=== PATIENT | male | born 1985 | race Caucasian/White ===

== ENCOUNTER → 2017-10-25 16:10 | Outpatient (CLI) | payer OTHER, SELFPAY ==
[2017-10-25 16:47] LABS: Alanine Aminotransferase 37 U/L (12-78); Albumin Level 4.3 gm/dL (3.4-5.0); Albumin/Globulin Ratio 1.4 (1.1-1.8); Alkaline Phosphatase 85 U/L (46-116); Aspartate Amino Transferase 19 U/L (15-37); Bilirubin,Total 0.3 mg/dL (0.2-1.0); Blood Urea Nitrogen 12 mg/dL (7-18); Calcium 9.2 mg/dL (8.5-10.1); Carbon Dioxide 34 mmol/L (21.0-32.0); Chloride 103 mmol/L (98-107); Creatine Kinase 123 U/L (39-308); Creatine Kinase MB 1.2 ng/ml (0.0-3.6); Creatinine,Serum 1.01 mg/dL (0.70-1.30); Estimated Glomerular Filt Rate 85 ml/min (>60); GFR (African American) 102 ML/MIN (>60); Globulin 3.1 gm/dl (1.3-3.2); Glucose 107 mg/dL (74-106); Sodium 139 mmol/L (136-145); Total Protein,Serum 7.4 gm/dL (6.4-8.2); Troponin I < 0.02 ng/ml (0.00-0.06)
--- NOTE | 2017-10-25 16:47 | CT_ITS ---
CT angio chest HISTORY: ITS.REASON: CHEST PAIN ORDERING PHYSICIAN: Rl Gallo MD PATIENT AGE: 32 years COMPARISON: None TECHNIQUE: Axial images obtained following the administration of 75 mL of Isovue 370 . Sagittal, and coronal reformatted images are also generated and reviewed. All CT scans at the facility use one or more dose reduction, viz: automated exposure control; ma/kV adjustment per patient size (including targeted exams where dose is matched to indication; i.e. head); or iterative reconstruction technique. FINDINGS: There is no evidence of aortic aneurysm or dissection. No evidence of pulmonary embolus. No mediastinal or hilar mass or adenopathy. No evidence of pericardial effusion. No lobar consolidation or collapse. There is a small area of increased density in the right lower lobe superior segment anterior to a calcified granuloma and could be related to an area of scarring or minimal infiltrate. 1Calcified granulomas are present in the right lower lobe.. No effusions. No evidence of pneumothorax. There are scattered small nodes in the axilla. No acute bony anomalies are evident. Upper abdominal images are unremarkable. IMPRESSION: 1. No evidence of pulmonary embolus, aortic aneurysm, or aortic dissection. 2. Old granulomatous disease with small area of fibrosis atelectasis or patchy infiltrate in the superior segment of the right lower lobe
[2017-10-25 16:53] LABS: Basophils # 0.1 K/mm3 (0-0.2); Basophils % 0.8 % (0.1-2.0); Eosinophils # 0.3 K/mm3 (0.0-0.4); Eosinophils % 3.8 % (0.1-12.0); Hematocrit 39.5 % (42.0-52.0); Hemoglobin 14.3 g/dL (14.1-18.0); Lymphocytes % 28.3 K/mm3 (10-50); Mean Corpuscular HGB Conc 36.2 g/dL (31.8-35.4); Mean Corpuscular Hemoglobin 32.1 pg (27.0-31.2); Mean Corpuscular Volume 88.6 fl (80-94); Mean Platelet Volume 7.7 fl (7.4-10.4); Monocytes # 0.6 K/mm3 (0.1-1.0); Monocytes % 8.1 % (1.7-9.3); Neutrophils # 4.1 K/mm3 (1.8-7.8); Platelet Count 229 K/mm3 (142-424); Red Blood Count 4.46 M/mm3 (4.60-6.20); Red Cell Distribution Width 12.4 % (11.5-17.5); White Blood Count 6.9 K/mm3 (4.8-10.8)
[2017-10-25 17:18] LABS: D-Dimer < 100 ng/mL (0-400)
== END ==
LOC: LAB 16:12 → RAD 16:24
PROVIDERS: Visit Provider Internal Medicine Adolescent Medicine
DX: R07.9 Chest pain, unspecified (principal); R06.02 Shortness of breath
CPT/HCPCS: 36415; 71275; 80053; 82550; 82553; 84484; 85025; 85378; Q9967

== ENCOUNTER → 2018-07-16 14:25 | Outpatient (CLI) | payer OTHER, SELFPAY ==
--- NOTE | 2018-07-16 14:37 | XR_ITS ---
XR knee LT 3V HISTORY: Pain and swelling ITS.REASON: LT KNEE PAIN ORDERING PHYSICIAN: Rl Gallo MD PATIENT AGE: 33 years COMPARISON: None FINDINGS: No fracture or dislocation. No lytic or blastic change. Normal mineralization. No significant arthritic changes evident. There is mild soft tissue swelling along the prepatellar and infrapatellar region. Possibly related to bursitis. IMPRESSION: Prepatellar and infrapatellar soft tissue swelling otherwise negative
== END ==
PROVIDERS: PCP Internal Medicine Adolescent Medicine; Visit Provider Internal Medicine Adolescent Medicine
DX: M25.562 Pain in left knee (principal)
CPT/HCPCS: 73562

== ENCOUNTER → 2019-11-07 19:24 | Outpatient (CLI) | payer OTHER, SELFPAY ==
[2019-11-09 08:31] LABS: Covid-19 Nasal PCR Sendout UK NOT DETECTED
== END ==
PROVIDERS: PCP Internal Medicine Adolescent Medicine; Visit Provider Internal Medicine Adolescent Medicine
DX: Z20.828 Contact with and (suspected) exposure to other viral communicable diseases (principal)
CPT/HCPCS: U0003

== ENCOUNTER → 2021-01-16 10:10 | Outpatient (CLI) | payer SELFPAY | PROVIDERS: PCP Internal Medicine Adolescent Medicine; Visit Provider Internal Medicine Adolescent Medicine | DX: R55 Syncope and collapse (principal) | CPT/HCPCS: 93270 ==

== ENCOUNTER → 2022-12-13 15:11 | Outpatient (CLI) | payer BC, SELFPAY ==
--- NOTE | 2022-12-13 15:17 | XR_ITS ---
FINAL REPORT CLINICAL HISTORY: RT ELBOW PAIN,H/O GOUT, knot on posterior elbow, no injury COMPARISON: None FINDINGS: Three views of the right elbow were obtained. There is no acute fracture or dislocation. The joint spaces are well preserved. No evidence of effusion. There is soft tissue swelling posterior to the olecranon. There is an osteophyte arising from the coronoid process. IMPRESSION: No acute process. Reviewed, Interpreted and Dictated by Festus Ralph MD Transcribed by Nicky Corbin Authenticated and [facility]
== END ==
LOC: RAD 15:12
PROVIDERS: PCP Nurse Practitioner Family; Visit Provider Nurse Practitioner Family
DX: M25.521 Pain in right elbow (principal); Z87.39 Personal history of other diseases of the musculoskeletal system and connective tissue
CPT/HCPCS: 73080

== ENCOUNTER 2022-12-16 20:55 | Emergency (ER) | payer BC, SELFPAY ==
--- NOTE | 2022-12-16 21:06 | PC.NURSE ---
Dr. Cardenas at BS to speak with pt
[2022-12-16 21:07] VITALS: BP 125/82; PULSE 76; RESP 19; TEMP 36.7; O2SAT 98; BMI 29.0
--- NOTE | 2022-12-16 21:12 | PC.NURSE ---
Pt gone to RAD via stretcher. Dr. Cardenas and FARIBA [place] with pt in CT.
--- NOTE | 2022-12-16 21:12 | CT_ITS ---
PROCEDURE INFORMATION: Exam: CT Thoracic Spine Without Contrast Exam date and time: 12/16/2022 9:33 PM Age: 37 years old Clinical indication: Weakness; Additional info: Ble weakness, proximal hips TECHNIQUE: Imaging protocol: Computed tomography of the thoracic spine without contrast. Radiation optimization: All CT scans at this facility use at least one of these dose optimization techniques: automated exposure control; mA and/or kV adjustment per patient size (includes targeted exams where dose is matched to clinical indication); or iterative reconstruction. REPORTING DATA: Count of CT and Cardiac NM exams in prior 12 months: This patient has received 0 known CTs and 0 known cardiac nuclear medicine studies in the 12 months prior to the current study. COMPARISON: CT CERVICAL SPINE WO CON 12/16/2022 9:30 PM FINDINGS: Bones/joints: No acute fracture or dislocation is identified. Soft tissues: Unremarkable. Lymph nodes: There are calcified mediastinal lymph nodes likely reflecting prior granulomatous disease. Lungs: There are calcified granulomas in the right lung. Other findings: . IMPRESSION: No acute osseous injury. If concern for thoracic spinal canal abnormality exists, MRI would be more sensitive.
--- NOTE | 2022-12-16 21:12 | CT_ITS ---
PROCEDURE INFORMATION: Exam: CTA Head With Contrast, Arteriography Exam date and time: 12/16/2022 9:54 PM Age: 37 years old Clinical indication: Weakness; Additional info: Weakness, ble TECHNIQUE: Imaging protocol: Computed tomographic angiography of the head with contrast. Exam focused on the arteries. 3D rendering (Not supervised by radiologist): MIP and/or 3D reconstructed images were created by the technologist. Radiation optimization: All CT scans at this facility use at least one of these dose optimization techniques: automated exposure control; mA and/or kV adjustment per patient size (includes targeted exams where dose is matched to clinical indication); or iterative reconstruction. Contrast material: ISOVUE; Contrast volume: 75 ml; Contrast route: INTRAVENOUS (IV); REPORTING DATA: Count of CT and Cardiac NM exams in prior 12 months: This patient has received 0 known CTs and 0 known cardiac nuclear medicine studies in the 12 months prior to the current study. COMPARISON: CT HEAD/BRAIN WO CON 12/16/2022 9:24 PM FINDINGS: ANTERIOR CIRCULATION: Right internal carotid artery: Intracranial segment is patent with no significant stenosis. No aneurysm. Right middle cerebral artery: No occlusion or significant stenosis. No aneurysm. Right anterior cerebral artery: No occlusion or significant stenosis. No aneurysm. Left internal carotid artery: Intracranial segment is patent with no significant stenosis. No aneurysm. Left middle cerebral artery: No occlusion or significant stenosis. No aneurysm. Left anterior cerebral artery: No occlusion or significant stenosis. No aneurysm. POSTERIOR CIRCULATION: Right vertebral artery: No occlusion or significant stenosis. No aneurysm. Left vertebral artery: No occlusion or significant stenosis. No aneurysm. Basilar artery: No occlusion or significant stenosis. No aneurysm. Right posterior cerebral artery: No occlusion or significant stenosis. No aneurysm. Left posterior cerebral artery: No occlusion or significant stenosis. No aneurysm. Brain: No definite mass, mass effect, or midline shift. Cerebral ventricles: No ventriculomegaly. Bones/joints: Unremarkable. No acute fracture. Soft tissues: Unremarkable. IMPRESSION: No large vessel stenosis or occlusion.
--- NOTE | 2022-12-16 21:12 | CT_ITS ---
PROCEDURE INFORMATION: Exam: CT Cervical Spine Without Contrast Exam date and time: 12/16/2022 9:30 PM Age: 37 years old Clinical indication: Weakness; Additional info: Ble weakness, proximal hips TECHNIQUE: Imaging protocol: Computed tomography of the cervical spine without contrast. Radiation optimization: All CT scans at this facility use at least one of these dose optimization techniques: automated exposure control; mA and/or kV adjustment per patient size (includes targeted exams where dose is matched to clinical indication); or iterative reconstruction. REPORTING DATA: Count of CT and Cardiac NM exams in prior 12 months: This patient has received 0 known CTs and 0 known cardiac nuclear medicine studies in the 12 months prior to the current study. COMPARISON: CT HEAD/BRAIN WO CON 12/16/2022 9:24 PM FINDINGS: Bones/joints: There is straightening of the normal spinal curvature. There is multilevel degenerative change with loss of intervertebral disc space and anterior osteophyte formation. No acute fracture or dislocation is identified. Dental: There is dental amalgam which causes streak artifact mildly limits evaluation of the oral cavity. Lungs: Lung apices are normal. Soft tissues: Unremarkable. IMPRESSION: Degenerative disease without acute injury identified.
--- NOTE | 2022-12-16 21:12 | CT_ITS ---
PROCEDURE INFORMATION: Exam: CT Pelvis Without Contrast; Skeletal Exam date and time: 12/16/2022 9:45 PM Age: 37 years old Clinical indication: Other: Weakness; Additional info: Ble weakness, proximal hips TECHNIQUE: Imaging protocol: Computed tomography of the pelvis without contrast. Exam focused on the skeleton. Radiation optimization: All CT scans at this facility use at least one of these dose optimization techniques: automated exposure control; mA and/or kV adjustment per patient size (includes targeted exams where dose is matched to clinical indication); or iterative reconstruction. REPORTING DATA: Count of CT and Cardiac NM exams in prior 12 months: This patient has received 0 known CTs and 0 known cardiac nuclear medicine studies in the 12 months prior to the current study. COMPARISON: CT LUMBAR SPINE WO CON 12/16/2022 9:42 PM FINDINGS: Bones/joints: Unremarkable. No acute fracture. No dislocation. Soft tissues: Unremarkable. IMPRESSION: No acute findings.
--- NOTE | 2022-12-16 21:12 | CT_ITS ---
PROCEDURE INFORMATION: Exam: CT Head Without Contrast Exam date and time: 12/16/2022 9:24 PM Age: 37 years old Clinical indication: Weakness, extremity; Bilateral; Additional info: Ble weakness, proximal hips TECHNIQUE: Imaging protocol: Computed tomography of the head without contrast. Radiation optimization: All CT scans at this facility use at least one of these dose optimization techniques: automated exposure control; mA and/or kV adjustment per patient size (includes targeted exams where dose is matched to clinical indication); or iterative reconstruction. REPORTING DATA: Count of CT and Cardiac NM exams in prior 12 months: This patient has received 0 known CTs and 0 known cardiac nuclear medicine studies in the 12 months prior to the current study. COMPARISON: No relevant prior studies available. FINDINGS: Brain: There are calcifications of the pineal gland. No evidence for acute intracranial hemorrhage, midline shift, or mass effect. No convincing evidence for acute transcortical infarct. Cerebral ventricles: There are calcifications of the choroid plexus. Paranasal sinuses: Visualized sinuses are unremarkable. No fluid levels. Mastoid air cells: Visualized mastoid air cells are well aerated. Bones/joints: Unremarkable. No acute fracture. Soft tissues: Unremarkable. IMPRESSION: No evidence for acute intracranial hemorrhage, midline shift, or mass effect. No convincing evidence for acute transcortical infarct.
--- NOTE | 2022-12-16 21:12 | CT_ITS ---
PROCEDURE INFORMATION: Exam: CT Lumbar Spine Without Contrast Exam date and time: 12/16/2022 9:42 PM Age: 37 years old Clinical indication: Weakness; Additional info: Ble weakness, proximal hips TECHNIQUE: Imaging protocol: Computed tomography of the lumbar spine without contrast. Radiation optimization: All CT scans at this facility use at least one of these dose optimization techniques: automated exposure control; mA and/or kV adjustment per patient size (includes targeted exams where dose is matched to clinical indication); or iterative reconstruction. REPORTING DATA: Count of CT and Cardiac NM exams in prior 12 months: This patient has received 0 known CTs and 0 known cardiac nuclear medicine studies in the 12 months prior to the current study. COMPARISON: CT THORACIC SPINE WO CON 12/16/2022 9:33 PM FINDINGS: Bones/joints: No acute fracture. Normal alignment. No significant disc bulge or herniation. No severe spinal canal stenosis. No significant neural foraminal narrowing. Soft tissues: Unremarkable. IMPRESSION: No acute findings. If concern for abnormality of the lumbar spine/canal persists, MRI would be more sensitive.
--- NOTE | 2022-12-16 21:12 | CT_ITS ---
PROCEDURE INFORMATION: Exam: CTA Abdominal Aorta and Bilateral Lower Extremities (Run-off) With Contrast Exam date and time: 12/16/2022 10:02 PM Age: 37 years old Clinical indication: Other: Weakness; Additional info: Weakness, ble TECHNIQUE: Imaging protocol: Computed tomographic angiography of the of the abdominal aorta, pelvis and bilateral lower extremities with contrast. 3D rendering (Not supervised by radiologist): MIP and/or 3D reconstructed images were created by the technologist. Radiation optimization: All CT scans at this facility use at least one of these dose optimization techniques: automated exposure control; mA and/or kV adjustment per patient size (includes targeted exams where dose is matched to clinical indication); or iterative reconstruction. Contrast material: ISOVUE; Contrast volume: 100 ml; Contrast route: INTRAVENOUS (IV); REPORTING DATA: Count of CT and Cardiac NM exams in prior 12 months: This patient has received 0 known CTs and 0 known cardiac nuclear medicine studies in the 12 months prior to the current study. COMPARISON: CT PELVIS WO CON 12/16/2022 9:45 PM FINDINGS: Aorta: No aortic aneurysm. No aortic dissection. Celiac trunk and mesenteric arteries: No occlusion or significant stenosis. Renal arteries: No occlusion or significant stenosis. Right iliac arteries: No occlusion or significant stenosis. Right femoral/popliteal arteries: No occlusion or significant stenosis. Right infrapopliteal arteries: No occlusion or significant stenosis. Left iliac arteries: No occlusion or significant stenosis. Left femoral/popliteal arteries: No occlusion or significant stenosis. Left infrapopliteal arteries: No occlusion or significant stenosis. Liver: No mass. Gallbladder and bile ducts: Unremarkable. No calcified stones. No ductal dilation. Pancreas: Unremarkable. No mass. No ductal dilation. Spleen: Normal. No splenomegaly. Adrenal glands: Normal. No mass. Kidneys and ureters: Normal. No mass. Stomach and bowel: Stomach is distended with fluid and debris.. No obstruction. No mucosal thickening. Appendix: No evidence of appendicitis. Urinary bladder: Unremarkable. No mass. Reproductive: Unremarkable as visualized. Intraperitoneal space: Unremarkable. No free air. No significant fluid collection. Lymph nodes: No lymphadenopathy. Bones/joints: No acute fracture. No dislocation. Moderate annular disc bulge L3-L4. Soft tissues: Unremarkable. IMPRESSION: 1. Unremarkable CTA abdomen, pelvis and lower extremities. 2. Moderate annular disc bulge L3-L4. MRI may be helpful.
--- NOTE | 2022-12-16 21:21 | CT_ITS ---
PROCEDURE INFORMATION: Exam: CTA Chest With Contrast Exam date and time: 12/16/2022 10:02 PM Age: 37 years old Clinical indication: Other: Weakness; Additional info: Proximal hip weakness, sudden TECHNIQUE: Imaging protocol: Computed tomographic angiography of the chest with contrast. Exam focused on the arteries. 3D rendering (Not supervised by radiologist): MIP and/or 3D reconstructed images were created by the technologist. Radiation optimization: All CT scans at this facility use at least one of these dose optimization techniques: automated exposure control; mA and/or kV adjustment per patient size (includes targeted exams where dose is matched to clinical indication); or iterative reconstruction. Contrast material: ISOVUE; Contrast volume: 100 ml; Contrast route: INTRAVENOUS (IV); REPORTING DATA: Count of CT and Cardiac NM exams in prior 12 months: This patient has received 0 known CTs and 0 known cardiac nuclear medicine studies in the 12 months prior to the current study. COMPARISON: [facility] CT angio chest 10/25/2017 4:51 PM FINDINGS: Pulmonary arteries: There is fair opacification of the pulmonary arterial tree, no central pulmonary arterial filling defect is seen. Aorta: Unremarkable. No aortic aneurysm. No aortic dissection. Lungs: Unremarkable. No consolidation. No masses. Pleural spaces: Unremarkable. No pneumothorax. No pleural effusion. Heart: Unremarkable. No cardiomegaly. No pericardial effusion. Coronary arteries: There is mild coronary atherosclerotic disease/calcification. Lymph nodes: Unremarkable. No enlarged lymph nodes. Intraperitoneal space: Please see the dedicated interpretation of abdomen and pelvis for findings in that region. Bones/joints: Please see the dedicated interpretation of the spine for findings in that region. Soft tissues: Unremarkable. Other findings: There are right-sided calcified granulomas. IMPRESSION: 1. There is fair opacification of the pulmonary arterial tree, no central pulmonary arterial filling defect is seen. 2. No dense parenchymal consolidation, pleural effusion, or pneumothorax.
--- NOTE | 2022-12-16 21:21 | CT_ITS ---
PROCEDURE INFORMATION: Exam: CTA Neck With Contrast Exam date and time: 12/16/2022 9:54 PM Age: 37 years old Clinical indication: Weakness; Additional info: Proximal hip weakness, sudden TECHNIQUE: Imaging protocol: Computed tomographic angiography of the neck with contrast. 3D rendering (Not supervised by radiologist): MIP and/or 3D reconstructed images were created by the technologist. Radiation optimization: All CT scans at this facility use at least one of these dose optimization techniques: automated exposure control; mA and/or kV adjustment per patient size (includes targeted exams where dose is matched to clinical indication); or iterative reconstruction. Contrast material: ISOVUE; Contrast volume: 75 ml; Contrast route: INTRAVENOUS (IV); REPORTING DATA: Count of CT and Cardiac NM exams in prior 12 months: This patient has received 0 known CTs and 0 known cardiac nuclear medicine studies in the 12 months prior to the current study. COMPARISON: CT CERVICAL SPINE WO CON 12/16/2022 9:30 PM FINDINGS: Right common carotid artery: No stenosis. No dissection or occlusion. Right internal carotid artery: No stenosis of the extracranial segment. No dissection or occlusion. Right external carotid artery: No occlusion or stenosis of the origin. Left common carotid artery: No stenosis. No dissection or occlusion. Left internal carotid artery: No stenosis of the extracranial segment. No dissection or occlusion. Left external carotid artery: No occlusion or stenosis of the origin. Right vertebral artery: No stenosis. No dissection or occlusion. Left vertebral artery: No stenosis. No dissection or occlusion. Soft tissues: Normal. No significant soft tissue swelling. Bones/joints: No acute fracture. IMPRESSION: No stenosis or occlusion. REFERENCES: NASCET CRITERIA. The degree of stenosis in the cervical segment of the internal carotid artery is based on NASCET criteria. Normal is no stenosis. Mild is less than 50% stenosis. Moderate is 50-69% stenosis. Severe is 70% to 99% stenosis. Total occlusion is no detectable patent lumen.
[2022-12-16 21:26] LABS: Basophils % 0.4 % (0.1-2.0); Eosinophils # 0.1 K/mm3 (0.0-0.4); Eosinophils % 0.7 % (0.1-12.0); Hematocrit 45.3 % (42.0-52.0); Hemoglobin 15.3 g/dL (14.1-18.0); Lymphocytes # 0.9 K/mm3 (0.7-4.5); Mean Corpuscular HGB Conc 33.7 g/dL (31.8-35.4); Mean Corpuscular Hemoglobin 30.6 pg (27.0-31.2); Mean Corpuscular Volume 90.7 fl (80-94); Mean Platelet Volume 8.2 fl (7.4-10.4); Monocytes # 0.5 K/mm3 (0.1-1.0); Monocytes % 5.1 % (1.7-9.3); Neutrophils # 7.6 K/mm3 (1.8-7.8); Neutrophils % 83.8 % (37.0-80.0); Platelet Count 275 K/mm3 (142-424); Red Cell Distribution Width 12.8 % (11.5-17.5)
--- NOTE | 2022-12-16 21:30 | PC.NURSE ---
Pt pre medicated for CT due to allergy to shellfish, provider and nurse at bedside during CT
[2022-12-16 21:38] LABS: VBG Oxygen Saturation 98.6 % (50-70); VBG PCO2 37.1 mmol/L (35-51); VBG PH 7.39 mmol/L (7.31-7.41); VBG PO2 131.9 mmol/L (28-40); VBG Total CO2 23.1 mmol/L (23-27)
[2022-12-16 21:39] LABS: Magnesium 1.8 mg/dl (1.6-2.3)
[2022-12-16 21:46] LABS: Alanine Aminotransferase 56 U/L (12-78); Albumin/Globulin Ratio 1.7 (1.1-1.8); Alkaline Phosphatase 76 U/L (38-126); Anion Gap 19.3 mEq/L (5-15); Aspartate Amino Transferase 35 U/L (17-59); Bilirubin,Total 0.4 mg/dl (0.2-1.3); Blood Urea Nitrogen 12 mg/dl (9-20); Calcium 9.7 mg/dl (8.4-10.2); Carbon Dioxide 22 mmol/L (22.0-30.0); Chloride 106 mmol/L (98-107); Creatinine Clearance Estimated 136 mL/min (50-200); Estimated Glomerular Filt Rate 83 ml/min (>60); GFR (African American) 101 ML/MIN (>60); Globulin 2.9 g/dL (1.3-3.2); Glucose 144 mg/dl (74-100); Potassium 3.3 mmoL/L (3.5-5.1); Sodium 144 mmol/L (136-145); Total Protein,Serum 7.9 g/dl (6.3-8.2)
--- NOTE | 2022-12-16 22:00 | PC.NURSE ---
Pt returned to room
[2022-12-16 22:02] LABS: Erythrocyte Sedimentation Rate 8 mm/hr (0-15)
[2022-12-16 22:05] LABS: T4 (Thyroxine) 6.2 ug/dl (5.53-11.0)
--- NOTE | 2022-12-16 22:15 | PC.NURSE ---
Pt tolerated CT contrast without any signs of allergic reaction, tolerated well.
[2022-12-16 22:17] VITALS: BP 119/64; PULSE 79; O2SAT 98
[2022-12-16 22:19] LABS: Thyroid Stimulating Hormone 0.62 uIU/mL (0.465-4.68)
[2022-12-16 22:27] LABS: Creatine Kinase 74 U/L (55-170)
[2022-12-16 22:30] VITALS: BP 121/60; PULSE 64; O2SAT 98
[2022-12-16 22:33] LABS: C-Reactive Protein 0.8 mg/L (0-4)
--- NOTE | 2022-12-16 22:36 | [facility].EDGENADL ---
Discharge Plan Disposition Patient Disposition: Xfer Short-Term Hosp Condition: Fair Chief Complaint: Weakness Prescriptions Prescriptions: No Action prednisone 20 mg tablet 40 mg PO DAILY Patient Comments: TAKE TWO TABLETS BY MOUTH EVERY DAY FOR 5 DAYS --TAKE WITH FOOD-- -- FINISH ALL MEDICINE -- allopurinol 100 mg tablet 100 mg PO DAILY Patient Comments: TAKE ONE TABLET BY MOUTH EVERY DAY indomethacin 50 mg capsule 50 mg PO DAILY Patient Comments: TAKE ONE CAPSULE BY MOUTH THREE TIMES DAILY NEEDED FOR FOR GOUT pain --TAKE WITH FOOD-- Referrals Follow up/Referrals: Rl Gallo MD [Primary Care Provider] - See instructions Clinical Impressions Clinical Impression: Weakness of both hips Stand Alone Forms Stand Alone Forms: Transfer Record - ED Discharge ED Provider: Eliana Cardenas General Adult HPI General Chief complaint: Weakness Stated complaint: BL leg weakness Time Seen by Provider: 12/16/22 21:12 Mode of Arrival: Family Vehicle Source of Information: Patient Limitations: No Limitations Description of Symptoms (Recalled from ER Triage Doc. by RN): 37 yo male presents with CC of ble weakness that spontaneously began about an hour ago. Patient reports a throbbing and visual change at approx 1500 today, and that he asked his at that time if the lights were flickering. Through no action of his own it resolved. Patient was walking out of an establishment and states my legs just gave out and his helped him crawl to the car because he couldn't stand back up. Denies b/b involvement. Denies current visual issues. gcs 15. History of Present Illness HPI narrative: This patient is a 37-year-old male who denies significant past medical history presenting to the emergency department for evaluation with concern for bilateral weakness that started around 8:00 PM. He was leaving [employer], when suddenly his legs gave out from underneath him and he collapsed to the ground. He was unable to get up on his own. His helped him crawl to the car because he could not stand. He denies experiencing these like this in the past. He denies any recent trauma, injuries, neck pain, back pain, numbness, tingling, urinary incontinence, saddle anesthesia, fecal incontinence, or other concerns. He states that earlier today around 3:00 PM, he had head throbbing and felt like the lights were flickering. This resolved on its own spontaneously. No other recent issues. He denies any recent fevers, chills, upper respiratory infections, other illnesses, vaccinations, tick bites, or other concerns. Of note, he is currently on prednisone daily (40mg) for a lesion on his arm. Related Data Home Medications Medication Instructions Recorded Confirmed allopurinol 100 mg tablet 100 mg PO DAILY gout 12/16/22 12/16/22 indomethacin 50 mg capsule 50 mg PO DAILY antinflammatory 12/16/22 12/16/22 prednisone 20 mg tablet 40 mg PO DAILY steroid 12/16/22 12/16/22 Allergies Allergy/AdvReac Type Severity Reaction Status Date / Time SHELLFISH (FOOD) Allergy Severe SWELLING Uncoded 12/16/22 21:18 [facility] Disclaimer: The information contained in this section may have been updated after the patient was seen, as this information can be updated by other users. Social History Smoking Status: Unknown if ever smoked alcohol intake: current current occupational status: employed Travel in the last 8 weeks: None ROS Obtained: Yes All systems reviewed & no additional complaints except as documented Physical Exam General General appearance: alert and in no apparent distress Head Head exam: atraumatic and normocephalic Eye Eye exam: Present normal appearance, PERRL and EOMI ENT ENT exam: Present normal exam, normal oropharynx, mucous membranes moist and normal external ear exam Neck Neck exam: Present normal inspection, full ROM and
--- NOTE | 2022-12-16 22:48 | PC.NURSE ---
Pt updated on possible transfer to for Neurology, verbalized understanding, continues to have weakness of both legs, unable to lift off bed without assistance, sensation intact, cap refill less than 3 seconds. PALAK
--- NOTE | 2022-12-16 22:49 | PC.NURSE ---
Dr. Cardenas speaking with Dr. Parker at [facility]
--- NOTE | 2022-12-16 22:55 | PC.NURSE ---
Pt accepted to [facility] by Dr. Parker
[2022-12-16 23:01] VITALS: BP 122/65; PULSE 68; RESP 16; TEMP 36.7; O2SAT 98
[2022-12-16 23:02] VITALS: BP 96/74; PULSE 89; O2SAT 97
--- NOTE | 2022-12-16 23:06 | PC.NURSE ---
call placed to [facility] for transport to ed. awaiting ems arrival.
--- NOTE | 2022-12-16 23:33 | PC.NURSE ---
called [facility] and spoke with [facility] requesting ETA. he stated it shouldn't be much longer
== END 2022-12-16 23:50 | disposition short-term general hospital (02) ==
PROVIDERS: Emergency Provider Emergency Medicine; PCP Internal Medicine Adolescent Medicine
DX: R53.1 Weakness (principal); M10.9 Gout, unspecified; E87.6 Hypokalemia
CPT/HCPCS: 70450; 70496; 70498; 71275; 72125; 72128; 72131; 72192; 75635; 80053; 82550; 82803; 83605; 83735; 84436; 84443; 85025; 85651; 86140; 96361; 96374; 96375; 99285; Q9967

== ENCOUNTER → 2023-01-09 07:30 | Outpatient (CLI) | payer BC, SELFPAY ==
--- NOTE | 2023-01-09 07:35 | FL_ITS ---
FINAL REPORT CLINICAL HISTORY: paraesthesia of inga ext opening pressure 14. Fluoro time: .20 DAP: 142.34 FINDINGS: LUMBAR PUNCTURE AND FLUOROSCOPY HISTORY: Paresthesia of the lower extremities. Evaluate for multiple sclerosis. ATTENDING PHYSICIAN: Dr. Ralph. PHYSICIAN MASTER [employer]PUT[employer] SECURITY: Shun Esparza PA-C PROCEDURE: After informed consent was obtained and timeout procedure performed, the patient was placed in the prone position in the fluoroscopic suite. The L3-L4 level of the lumbar spine was localized under fluoroscopic guidance and marked on the skin appropriately. The patient was then prepped and draped in the usual sterile fashion and the skin was anesthetized with 1% Lidocaine. A lumbar puncture was then performed under direct fluoroscopic guidance at the L3-L4 level using a 20-gauge 3 1/2'' needle. The patient was subsequently rolled into the left lateral decubitus position and opening pressure was measured at 14 cm of water. Approximately 10 ml of clear cerebrospinal fluid was removed and sent to the laboratory for studies. The patient tolerated the procedure well and there were no immediate complications. Fluoro time: 0.2 minutes. Total DAP: 142.34 uGycm2. Single fluoroscopic spot film was obtained. IMPRESSION: Technically successful lumbar punctureunder direct fluoroscopic guidance as above. Films reviewed , interpreted and dictated by Dr. Ralph. Transcribed by Shun Esparza PA-C. Reviewed, Interpreted and Dictated by Festus Ralph MD Transcribed by YOLANDA Rice Authenticated and [facility]
[2023-01-09 09:21] VITALS: BMI 29.0
[2023-01-09 09:24] VITALS: BP 131/76; PULSE 54; RESP 18; TEMP 36.1; O2SAT 98
[2023-01-09 09:58] VITALS: BP 128/91; PULSE 54; RESP 18; TEMP 36.3; O2SAT 99
[2023-01-09 10:38] VITALS: BP 113/70; PULSE 50; RESP 18; O2SAT 98
[2023-01-09 11:08] VITALS: BP 122/84; PULSE 68; RESP 18; O2SAT 98
--- NOTE | 2023-01-09 11:21 | PC.NURSE ---
0997-pt arrived in postop via Katherine couch in radiology transported. Pt supine, with bandaid at site of LP. denies pain. at BS. Pt sipping coffee , placed pillows on lateral under arms for comfort. Watching TV 1015-pt supine, using phone 1115-pt denies pain, using phone, CDI at site
[2023-01-09 12:00] VITALS: BP 135/69; PULSE 72; RESP 18; TEMP 36.4; O2SAT 100
--- NOTE | 2023-01-09 12:05 | PC.NURSE ---
1200-pt in , bandaid CDI, denies pain. Transported to vehicle was driving.
[2023-01-09 12:33] LABS: Glucose,CSF 55 mg/dl (40-70)
[2023-01-09 13:21] LABS: Appearance,CSF Clear (Clear); Volume,CSF 1 mL; White Blood Cell,CSF 1 cells/uL (0-5)
[2023-01-09 13:22] LABS: Red Blood Cell,CSF 1 cells/uL (0)
[2023-01-09 13:38] LABS: Polynuclear WBCs,CSF 0 %
[2023-01-09 13:39] LABS: Mononuclear WBCs,CSF 2 %
== END ==
LOC: RAD 07:30
PROVIDERS: PCP Internal Medicine Adolescent Medicine; Visit Provider Internal Medicine Adolescent Medicine
DX: G83.10 Monoplegia of lower limb affecting unspecified side (principal)
CPT/HCPCS: 62328; 82945; 83916; 84155; 87070; 87205; 89051

== ENCOUNTER 2025-01-02 13:25 | Emergency (ER) | payer OTHER, SELFPAY ==
--- OUTSIDE RECORDS SUMMARY | 2024-11-06 11:10 | XMS_ITS | Encounter Summary ---
Author Organization [facility] Address [address] [place] [address] Care Team Providers Care Manager Of Maintenance Name Role Phone Rl Gallo MD Primary Care Provider Encounter Details Date Type Department Care Team (Late Contact Info) Description 11/06/2024 11:10 AM EDT Lab [facility] [address] [place] [address] Inflammatory polyneuropathy Social History Tobacco Use Types Packs/Day Years Used Date Smoking Tobacco: Never Passive Smoke Exposure: Never Smokeless Tobacco: Current Chew Alcohol Use Standard Drinks/Week Comments Yes 2 (1 standard drink = 0.6 oz pur e alcohol) Sex and Gender Information Value Date Recorded Sex Assigned at Not on file Legal Sex Male 1:34 PM EDT Gender Identity Not on file Sexual Orientation Not on file Occupation Industry Job Start Date Job End Date [employer] Not on file Not on fi le Not on file documented as of this encounter Plan of Treatment Upcoming Encounters Date Type Department Care Team (Late Contact Info) Description 01/21/2025 8:30 AM EDT Appointment [facility] [place] [address] [place] [id number] 05/13/2025 10:45 AM EST Office Visit [facility] [address] [place] [address] Charli Samson MD [address] [place] [address] documented as of this encounter Procedures Procedure Name Priority Date/Time Associated Diagnosis Comments CBC WITH AUTO DIFFERENTIAL Routine 11/06/2024 11:06 AM EDT Inflammatory polyneuropathy CBC AND DIFFERENTIAL Routine 11/06/2024 11:06 AM EDT Inflammatory polyneuropathy COMPREHENSIVE METABOLIC PANEL Routine 11/06/2024 11:06 AM EDT Inflammatory polyneuropathy documented in this encounter Results * (ABNORMAL) CBC Auto Differential (11/06/2024 11:06 AM EDT) WBC 6.21 3.40 - 10.80 10*3/mm3 11/06/2024 7:05 PM EDT [facility] RBC 4.69 4.14 - 5.80 10*6/mm3 11/06/2024 7:05 PM EDT [facility] Hemoglobin 15.0 13.0 - 17.7 g/dL 11/06/2024 7:05 PM EDT [facility] Hematocrit 41.8 37.5 - 51.0 % 11/06/2024 7:05 PM EDT [facility] MCV 89.1 79.0 - 97.0 fL 11/06/2024 7:05 PM EDT [facility] MCH 32.0 26.6 - 33.0 pg 11/06/2024 7:05 PM T [facility] MCHC 35.9(H) 31.5 - 35.7 g/dL 11/06/2024 7:05 PM EDT [facility] RDW 12.8 12.3 - 15.4 % 11/06/2024 7:05 PM T [facility] RDW-SD 40.8 37.0 - 54.0 fl 11/06/2024 7:05 PM EDT [facility] MPV 10.4 6.0 - 12.0 fL 11/06/2024 7:05 PM EDT [facility] Platelets 261 140 - 450 10*3/mm3 11/06/2024 7:05 PM [facility] Neutrophil % 58.4 42.7 - 76.0 % 11/06/2024 7:05 PM [facility] Lymphocyte % 24.8 19.6 - 45.3 % 11/06/2024 7:05 PM [facility] Monocyte % 12.2(H) 5.0 - 12.0 % 11/06/2024 7:05 PM [facility] Eosinophil % 2.7 0.3 - 6.2 % 11/06/2024 7:05 PM [facility] Basophil % 0.8 0.0 - 1.5 % 11/06/2024 7:05 PM [facility] Immature Grans % 1.1(H) 0.0 - 0.5 % 11/06/2024 7:05 PM [facility] Neutrophils, Absolute 3.62 1.70 - 7.00 10*3/mm3 11/06/2024 7:05 PM [facility] Lymphocytes, Absolute 1.54 0.70 - 3.10 10*3/mm3 11/06/2024 7:05 PM [facility] Monocytes, Absolute 0.76 0.10 - 0.90 10*3/mm3 11/06/2024 7:05 PM [facility] Eosinophils, Absolute 0.17 0.00 - 0.40 10*3/mm3 11/06/2024 7:05 PM [facility] Basophils, Absolute 0.05 0.00 - 0.20 10*3/mm3 11/06/2024 7:05 PM [facility] Immature Grans, Absolute 0.07(H) 0.00 - 0.05 10*3/mm3 11/06/2024 7:05 PM [facility] nRBC 0.0 0.0 - 0.2 /100 WBC 11/06/2024 7:05 PM [facility] Blood Venipuncture / Unknown 11/06/2024 11:06 AM EDT 11/06/2024 11:06 AM EDT us Charli Samson MD LAB BLOOD ORDERABLES Final Re sult [facility]
[address] [place] [address], * (ABNORMAL) Comprehensive Metabolic Panel (11/06/2024 11:06 AM EDT) Glucose 80 65 - 99 mg/dL 11/06/2024 8:00 PM EDT [facility] BUN 15.0 6.0 - 20.0 mg/dL 11/06/2024 8:00 PM T [facility] Creatinine 1.32(H) 0.76 - 1.27 mg/dL 11/06/2024 8:00 PM EDT [facility] Sodium 138 136 - 145 mmol/L 11/06/2024 8:00 PM EDT [facility] Potassium 4.1 3.5 - 5.2 mmol/L 11/06/2024 8:00 PM EDT [facility] Chloride 102 98 - 107 mmol/L 11/06/2024 8:00 PM EDT [facility] CO2 23.0 22.0 - 29.0 mmol/L 11/06/2024 8:00 PM EDT [facility] Calcium 9.9 8.6 - 10.5 mg/dL 11/06/2024 8:00 PM EDT [facility] Total Protein 7.6 6.0 - 8.5 g/dL 11/06/2024 8:00 PM EDT [facility] Albumin 4.8 3.5 - 5.2 g/dL 11/06/2024 8:00 PM EDT [facility] ALT (SGPT) 41 1 - 41 U/L 11/06/2024 8:00 PM EDT [facility] AST (SGOT) 32 1 - 40 U/L 11/06/2024 8:00 PM EDT [facility] Alkaline Phosphatase 85 39 - 117 U/L 11/06/2024 8:00 PM EDT [facility] Total Bilirubin 0.4 0.0 - 1.2 mg/dL 11/06/2024 8:00 PM EDT [facility] Globulin 2.8 gm/dL 11/06/2024 8:00 PM EDT [facility] A/G Ratio 1.7 g/dL 11/06/2024 8:00 PM EDT [facility] BUN/Creatinine Ratio 11.4 7.0 - 25.0 11/06/2024 8:00 PM EDT [facility] Anion Gap 13.0 5.0 - 15.0 mmol/L 11/06/2024 8:00 PM EDT [facility] eGFR 69.5 >60.0 mL/min/1.7 3 11/06/2024 8:00 PM T [facility] Blood Venipuncture / Unknown 11/06/2024 11:06 AM EDT 11/06/2024 11:06 AM EDT Narrative [facility] - 11/06/2024 8:00 PM EDT GFR Categories in Chronic Kidney Disease (CKD) GFR Category GFR (mL/min/1.73) Interpretation G1 90 or greater Normal or high (1) G2 60-89 Mild decrease (1) G3a 45-59 Mild to moderate decrease G3b 30-44 Moderate to severe decrease G4 15-29 Severe decrease G5 14 or less Kidney failure (1)In the absence of evidence of kidney disease, neither GFR category G1 or G2 fulfill the criteria for CKD. eGFR calculation 2020 CKD-EPI creatinine equation, which does not include race as a factor us Charli Samson MD LAB BLOOD ORDERABLES Final Re sult [facility]
[address] [place] [address], documented in this encounter Visit Diagnoses Diagnosis Inflammatory polyneuropathy documented in this encounter Care Teams Manager Of Maintenance Relationship Specialty Start Date End Date Rl Gallo MD [address] [facility] [address] [place] [address] PCP - General Adolescent Medicine 05/01/23 documented as of this encounter
--- OUTSIDE RECORDS SUMMARY | 2024-11-06 11:15 | XMS_ITS | Encounter Summary ---
Author Organization [facility] Address [address] [place] [address] Care Team Providers Care Butcher [employer] Name Role Phone Rl Galol MD Primary Care Provider [phone] Reason for Referral * Cardiac (Routine) - Pending Review Specialty Diagnoses / Procedures Referred By Contac t Referred To Contact Diagnoses Syncope and collapse Procedures Tilt Table Charli Samson MD [address] [address] Phone: tel: fax: [address] [address] Phone: tel: Referral ID Status Reason Start Date Expiration Date V isits Requested Visits Authorized [id number] Pending Review 11/06/2024 02/05/2026 1 1 Reason for Visit * Reason Comments Inflammatory polyneuropathy Encounter Details Date Type Department Care Team (Latest Contact Info) Description 11/06/2024 11:15 AM EDT Office Visit [facility] [address] [facility] [address] [place] [id number] Charli Samson MD [address] [facility] [address] [place] [address] Inflammatory polyneuropathy (Primary Dx); Syncope and collapse Social History Tobacco Use Types Packs/Day Years Used Date Smoking Tobacco: Never Passive Smoke Exposure: Never Smokeless Tobacco: Current Chew Tobacco Cessation:Ready to Q uit: No; Counseling Given: Yes Alcohol Use Standard Drinks/Week Comments Yes 2 [...] on file documented as of this encounter Last Filed Vital Signs Vital Sign Reading Time Taken Comments Blood Pressure 128/84 11/06/2024 10:31 AM EDT Pulse 83 11/06/2024 10:31 AM EDT Temperature - - Respiratory Rate - - Oxygen Saturation 98% 11/06/2024 10:31 AM EDT Inhaled Oxygen Concentration - - Weight 103 kg (226 lb) 11/06/2024 10:31 AM EDT Height 182.9 cm (6' 0.01 ) 11/06/2024 10:31 AM E DT Body Mass Index 30.64 11/06/2024 10:31 AM EDT documented in this encounter Progress Notes * Charli Samson MD - 11/06/2024 11:15 AM EDT Chief Complaint Inflammatory polyneuropathy Subjective Kelby Henry presents to [facility] History of Present Illness 39 y.o. male returns in follow up. Last visit on 12/30/23 continued AZA. EMG/NCS distal symmetrical sensorimotor polyneuropathy with features of demyelinating in left lowerextremity. CSF - protein 106.1, WBC 2, RBC 32, IgG syn rate 10.1 L LE fatigues easily. More effort to go up stairs. Three bad days since starting AZA. Episode of syncope one month ago. Prodrome of nausea, LH, vision greys. LOC for less than a minutes. Awakens without confusion. Feels hot, flush, sweating. Objective Vital Signs: BP 128/84 Pulse 83 Ht 182.9 cm (72.01 ) Wt 103 kg (226 lb) SpO2 98% BMI 30.64 kg/m?? Estimated body mass index is 30.64 kg/m?? as calculated from the following: Height as of this encounter: 182.9 cm (72.01 ). Weight as of this encounter: 103 kg (226 lb). Neurological Exam Mental Status Awake, alert and oriented to person, place and time. Oriented to person, place and time. Speech is normal. Language is fluent with no aphasia. Attention and concentration are normal. Fund of knowledge is appropriate for level of education. Cranial Nerves CN III, IV, : Extraocular movements intact bilaterally. Pupils equal round and reactive to light bilaterally. CN V: Facial sensation is normal. CN VII: Full and symmetric facial movement. CN IX, X: Palate elevates symmetrically CN XI: Shoulder shrug strength is normal. CN XII: Tongue midline without atrophy or fasciculations. Motor Strength is 5/5 throughout all four extremities. Sensory Light touch abnormality: Pinprick abnormality: Decreased pp and lt L LE . Reflexes Deep tendon reflexes are 2+ and symmetric in all four extremities. Coordination Yonbkh-[id number]-cwmo, rapid alternating movements and [id number]-[id number] normal bilaterally without dysmetria. Gait Normal casual, toe, heel and tandem gait. Physical Exam Eyes: Extraocular Movements: Extraocular movements intact. Pupils: Pupils are equal, round, and reactive to light. Neurological: Motor: Motor strength is normal. Coordination: Coordination is intact. Deep Tendon Reflexes: Reflexes are normal and symmetric. Psychiatric: Speech: Speech normal. Result Review : The following data was reviewed by: Charli Samson MD on 11/06/2024: Common labs 12/30/2023 10:30 Common Labs Glucose 85 BUN 11 Creatinine 1.09 Sodium 140 Potassium 4.3 Chloride 104 Calcium 9.8 Albumin 4.7 Total Bilirubin 0.5 Alkaline Phosphatase 84 AST (SGOT) 26 ALT (SGPT) 32 WBC 5.56 Hemoglobin 15.0 Hematocrit 42.6 Platelets 293 Assessment and Plan Diagnoses and all orders for this visit: 1. Inflammatory polyneuropathy (Primary) Assessment & Plan: L LE weakness continues Increase Azathioprine 100 mg daily CBC, CMP Orders: - azaTHIOprine (IMURAN) 100 MG tablet; Take 1 tablet by mouth Daily. Dispense: 90 tablet; Refill: 3 - CBC & Differential; Future - Comprehensive Metabolic Panel; Future 2. Syncope and collapse - Tilt Table; Future Follow Up No follow-ups on file. Patient was given instructions and counseling regarding his condition or for health maintenance advice. Please see specific information pulled into the AVS if appropriate. * Charli Samson MD - 11/06/2024 10:53 AM EDTAssociated Problem(s): Inflammatory polyneuropathy L LE weakness continues Increase Azathioprine 100 mg daily CBC, CMP documented in this encounter Plan of Treatment Upcoming Encounters Date Type Department Care Team (Late st Contact Info) Description 01/21/2025 8:30 AM EDT Appointment [facility] [place] [address] [place] [address] 05/13/2025 10:45 AM EST Office Visit [facility] [address] [facility] [address] [place] [address] Charli Samson MD [address] [facility] [address] [place] [address] Scheduled Orders Name Type Priority Associated Diagnoses Orde r Schedule Tilt Table Cardiac Services Routine Syncope and collapse Expected: 11/13/2024 (Approximate), Expires: 11/06/2025 documented as of this encounter Results * (ABNORMAL) Comprehensive Metabolic Panel (11/06/2024 11:06 AM EDT) Glucose 80 65 - 99 mg/dL 11/06/2024 8:00 PM EDT [facility] BUN 15.0 6.0 - 20.0 mg/dL 11/06/2024 8:00 PM EDT [facility] Creatinine 1.32(H) 0.76 - 1.27 mg/dL 11/06/2024 8:00 PM EDT [facility] Sodium 138 136 - 145 mmol/L 11/06/2024 8:00 PM EDT [facility] Potassium 4.1 3.5 - 5.2 mmol/L 11/06/2024 8:00 PM EDT [facility] Chloride 102 98 - 107 mmol/L 11/06/2024 8:00 PM [facility] CO2 23.0 22.0 - 29.0 mmol/L 11/06/2024 8:00 PM [facility] Calcium 9.9 8.6 - 10.5 mg/dL 11/06/2024 8:00 PM [facility] Total Protein 7.6 6.0 - 8.5 g/dL 11/06/2024 8:00 PM [facility] Albumin 4.8 3.5 - 5.2 g/dL 11/06/2024 8:00 PM [facility] ALT (SGPT) 41 1 - 41 U/L 11/06/2024 8:00 PM [facility] AST (SGOT) 32 1 - 40 U/L 11/06/2024 8:00 PM [facility] Alkaline Phosphatase 85 39 - 117 U/L 11/06/2024 8:00 PM [facility] Total Bilirubin 0.4 0.0 - 1.2 mg/dL 11/06/2024 8:00 PM [facility] Globulin 2.8 gm/dL 11/06/2024 8:00 PM [facility] A/G Ratio 1.7 g/dL 11/06/2024 8:00 PM [facility] BUN/Creatinine Ratio 11.4 7.0 - 25.0 11/06/2024 8:00 PM [facility] Anion Gap 13.0 5.0 - 15.0 mmol/L 11/06/2024 8:00 PM [facility] eGFR 69.5 >60.0 mL/min/1.7 3 11/06/2024 8:00 PM [facility] Blood Venipuncture / Unknown 11/06/2024 11:06 AM EDT 11/06/2024 11:06 AM T [facility] - 11/06/2024 8:00 PM EDT GFR [...] MD LAB BLOOD ORDERABLES Final Re sult [facility]
[address] [place] [address], documented in this encounter Visit Diagnoses Diagnosis Inflammatory polyneuropathy- Primary Syncope and collapse documented in this encounter Care Teams Butcher Meat Relationship Specialty Start Date End Date Rl Gallo MD [facility] [address] [place] [address] PCP - General Adolescent Medicine 05/01/23 documented as of this encounter
[2025-01-02 13:30] VITALS: BP 138/93; PULSE 66; O2SAT 100
[2025-01-02 13:36] VITALS: BP 138/93; PULSE 92; RESP 15; TEMP 36.6; O2SAT 99; BMI 29.0
--- OUTSIDE RECORDS SUMMARY | 2025-01-02 13:39 | XMS_ITS | Clinical Summary ---
Author Organization [facility] Address [facility] [place] [address] Care Team Providers Care Relationship Advisor Name Role Phone Rl Gallo MD Primary Care Provider [phone] Allergies Active Allergy Reactions Criticality Noted Date Comments Shellfish Allergy Other - please docum ent in the comment field High 12/17/2022 Social History Tobacco Use Types Packs/Day Years Used Date Smoking Tobacco: Never Smokeless Tobacco: Never Tobacco Cessation:Counseling Given: No Sex and Gender Information Value Date Recorded Sex Assigned at Not on file Legal Sex Male 8:06 PM EDT Gender Identity Not on file Sexual Orientation Not on file Last Filed Vital Signs Vital Sign Reading Time Taken Comments Blood Pressure 132/78 12/17/2022 4:30 AM EDT Pulse 65 12/17/2022 4:30 AM EDT Temperature - - Respiratory Rate 16 12/17/2022 4:30 AM EDT Oxygen Saturation 96% 12/17/2022 1:28 AM EDT Inhaled Oxygen Concentration - - Weight 97.1 kg (214 lb) 12/17/2022 3:11 AM EDT Height 182.9 cm (6') 12/17/2022 3:11 AM EDT Body Mass Index 29.02 12/17/2022 3:11 AM EDT Plan of Treatment Not on file Insurance [employer] Care Teams Relationship Advisor Relationship Specialty Start Date End Date Rl Gallo MD [address] [place] [address] PCP - General Internal Medicine 12/17/22
--- OUTSIDE RECORDS SUMMARY | 2025-01-02 13:39 | XMS_ITS | Clinical Summary ---
Author Organization [facility] Address [address] [place] [address] Care Team Providers Care Shake Table Operator Name Role Phone Rl Gallo MD Primary Care Provider [phone] Allergies Active Allergy Reactions Criticality Noted Date Comments Shellfish Allergy Other (See Comments) High 12/18/19 23 Lip and throat swelling Medications Alavert Allergy/Sinus 5-120 MG per 12 hr tablet Take 1 tablet by mouth 2 (Two) Times a Day. 3 Active ibuprofen (ADVIL,MOTRIN) 800 MG tablet Take 1 tablet by mouth Every 8 (Eight) Hours As Needed. for pain 5 Active azaTHIOprine (IMURAN) 100 MG tabletIndications:I nflammatory polyneuropathy Take 1 tablet by mouth Daily. 90 tablet 3 5 Active Active Problems Problem Noted Date Diagnosed Date Inflammatory polyneuropathy 12/30/2023 Assessment & Plan (11/06/2024 10:53 AM EDT): L LE weakness continues Increase Azathioprine 100 mg daily CBC, CMP Assessment & Plan (12/30/2023 10:13 AM EDT): Continue AZA 50 gm daily CBC,CMP Tobacco use 05/01/2023 Syncope and collapse 05/01/2023 Resolved Problems Problem Noted Date Diagnosed Date Resolved Date Weakness of both legs 05/01/20232024 Transient weakness of lower extremity 05/01/2023 11/06/2024 Encounters Date Type Department Care Team Description 11/06/2024 11:15 AM EDT Office Visit [facility] NE[facility] [address] [place] [address] Charli Samson MD Inflammatory polyneuropathy (Primary Dx); Syncope and collapse 11/06/2024 11:10 AM EDT Lab [facility] [address] [place] [address] Inflammatory polyneuropathy 11/06/2024 Travel from Last 3 Months Family History Medical History Relation Name Comments Diabetes Father Heart disease Father Breast cancer Mother Dementia Other Depression Other Diabetes Other Relation Name Status Comments Father Mother Other Social History Tobacco Use Types Packs/Day Years [...] Not on fi le Not on file Last Filed Vital Signs Vital Sign Reading Time Taken Comments Blood Pressure 128/84 11/06/2024 10:31 AM EDT Pulse 83 11/06/2024 10:31 AM EDT Temperature 36.5 C (97.7 F) 09/23/2023 8:32 AM EDT Respiratory Rate 18 09/23/2023 12:34 PM EDT Oxygen Saturation 98% 11/06/2024 10:31 AM EDT Inhaled Oxygen Concentration - - Weight 103 kg (226 lb) 11/06/2024 10:31 AM EDT Height 182.9 cm (6' 0.01 ) 11/06/2024 10:31 AM E DT Body Mass Index 30.64 11/06/2024 10:31 AM EDT Plan of Treatment Upcoming Encounters Date Type Department Care Team (Late st Contact Info) Description 01/21/2025 8:30 AM EDT Appointment [facility]ARDIOVASCULAR [facility] [place] [address] [facility] [address] [place] [address] 05/13/2025 10:45 AM EST Office Visit [facility] NEUROLOGY [address] [place] [address] Charli Samson MD [address] [facility] [address] [place] [address] Health Maintenance Due Date Last Done Comments Pneumococcal Vaccine 0-49 (1 of 2 - PCV) 2002 COVID-19 Vaccine (2 - Cassidy risk series) 01/20/2021 12/23/2020 ANNUAL PHYSICAL 04/25/2023 INFLUENZA VACCINE 01/20/2025 02/21/2018 TDAP/TD VACCINES (2 - Td or Tdap) 04/12/2033 023 HEPATITIS C SCREENING Completed 12/17/2022 Procedures Procedure Name Priority Date/Time Associated Diagnosis Comments CBC AND DIFFERENTIAL Routine 11/06/2024 11:06 AM EDT Inflammatory polyneuropathy CBC WITH AUTO DIFFERENTIAL Routine 11/06/2024 11:06 AM EDT Inflammatory polyneuropathy COMPREHENSIVE METABOLIC PANEL Routine 11/06/2024 11:06 AM EDT Inflammatory polyneuropathy from Last 3 Months Results * (ABNORMAL) CBC Auto Differential (11/06/2024 11:06 AM EDT) WBC 6.21 3.40 - 10.80 10*3/mm3 11/06/2024 7:05 PM EDT [facility] RBC 4.69 4.14 - 5.80 10*6/mm3 11/06/2024 7:05 PM EDT [facility] Hemoglobin 15.0 13.0 - 17.7 g/dL 11/06/2024 7:05 PM EDT [facility] Hematocrit 41.8 37.5 - 51.0 % 11/06/2024 7:05 PM EDT [facility] MCV 89.1 79.0 - 97.0 fL 11/06/2024 7:05 PM EDT [facility] MCH 32.0 26.6 - 33.0 pg 11/06/2024 7:05 PM [facility] MCHC 35.9(H) 31.5 - 35.7 g/dL 11/06/2024 7:05 PM [facility] RDW 12.8 12.3 - 15.4 % 11/06/2024 7:05 PM [facility] RDW-SD 40.8 37.0 - 54.0 fl 11/06/2024 7:05 PM [facility] MPV 10.4 6.0 - 12.0 fL 11/06/2024 7:05 PM [facility] Platelets 261 140 - 450 10*3/mm3 11/06/2024 7:05 PM [facility] Neutrophil % 58.4 42.7 - 76.0 % 11/06/2024 7:05 PM [facility] Lymphocyte % 24.8 19.6 - 45.3 % 11/06/2024 7:05 PM [facility] Monocyte % 12.2(H) 5.0 - 12.0 % 11/06/2024 7:05 PM [facility] Eosinophil % 2.7 0.3 - 6.2 % 11/06/2024 7:05 PM [facility] Basophil % 0.8 0.0 - 1.5 % 11/06/2024 7:05 PM [facility] Immature Grans % 1.1(H) 0.0 - 0.5 % 11/06/2024 7:05 PM [facility] Neutrophils, Absolute 3.62 1.70 - 7.00 10*3/mm3 11/06/2024 7:05 PM [facility] Lymphocytes, Absolute 1.54 0.70 - 3.10 10*3/mm3 11/06/2024 7:05 PM [facility] Monocytes, Absolute 0.76 0.10 - 0.90 10*3/mm3 11/06/2024 7:05 PM [facility] Eosinophils, Absolute 0.17 0.00 - 0.40 10*3/mm3 11/06/2024 7:05 PM EDT [facility] Basophils, Absolute 0.05 0.00 - 0.20 10*3/mm3 11/06/2024 7:05 PM EDT [facility] Immature Grans, Absolute 0.07(H) 0.00 - 0.05 10*3/mm3 11/06/2024 7:05 PM EDT [facility] nRBC 0.0 0.0 - 0.2 /100 WBC 11/06/2024 7:05 PM EDT [facility] Blood Venipuncture / Unknown 11/06/2024 11:06 AM EDT 11/06/2024 11:06 AM EDT us Charli Samson MD LAB BLOOD ORDERABLES Final Re sult [facility]
[address] [place] [address], * (ABNORMAL) Comprehensive Metabolic Panel (11/06/2024 11:06 AM EDT) Glucose 80 65 - 99 mg/dL 11/06/2024 8:00 PM EDT [facility] BUN 15.0 6.0 - 20.0 mg/dL 11/06/2024 8:00 PM T [facility] Creatinine 1.32(H) 0.76 - 1.27 mg/dL 11/06/2024 8:00 PM EDT [facility] Sodium 138 136 - 145 mmol/L 11/06/2024 8:00 PM EDT [facility] Potassium 4.1 3.5 - 5.2 mmol/L 11/06/2024 8:00 PM EDT [facility] Chloride 102 98 - 107 mmol/L 11/06/2024 8:00 PM EDT [facility] CO2 23.0 22.0 - 29.0 mmol/L 11/06/2024 8:00 PM [facility] Calcium 9.9 8.6 - 10.5 mg/dL 11/06/2024 8:00 PM [facility] Total Protein 7.6 6.0 - 8.5 g/dL 11/06/2024 8:00 PM [facility] Albumin 4.8 3.5 - 5.2 g/dL 11/06/2024 8:00 PM [facility] ALT (SGPT) 41 1 - 41 U/L 11/06/2024 8:00 PM [facility] AST (SGOT) 32 1 - 40 U/L 11/06/2024 8:00 PM [facility] Alkaline Phosphatase 85 39 - 117 U/L 11/06/2024 8:00 PM [facility] Total Bilirubin 0.4 0.0 - 1.2 mg/dL 11/06/2024 8:00 PM [facility] Globulin 2.8 gm/dL 11/06/2024 8:00 PM [facility] A/G Ratio 1.7 g/dL 11/06/2024 8:00 PM [facility] BUN/Creatinine Ratio 11.4 7.0 - 25.0 11/06/2024 8:00 PM [facility] Anion Gap 13.0 5.0 - 15.0 mmol/L 11/06/2024 8:00 PM [facility] eGFR 69.5 >60.0 mL/min/1.7 3 11/06/2024 8:00 PM [facility] Blood Venipuncture / Unknown 11/06/2024 11:06 AM EDT 11/06/2024 11:06 AM [facility] - 11/06/2024 8:00 PM T GFR Categories in Chronic Kidney Disease (CKD) [...] MD LAB BLOOD ORDERABLES Final Re sult [facility]
[address] [place] [address], from Last 3 Months Insurance [facility] PPO Care Teams Shake Table Operator Relationship Specialty Start Date End Date Rl Gallo MD [address] [facility] [address] [place] [id number] PCP - General Adolescent Medicine 05/01/23
--- OUTSIDE RECORDS SUMMARY | 2025-01-02 13:39 | XMS_ITS | Encounter Summary ---
Author Organization [facility] Address [address] [place] [address] Care Team Providers Care Deli/Bakery Associate Name Role Phone Rl Gallo MD Primary Care Provider Encounter Details Date Type Department Care Team (Latest Contact Info) Description 11/06/2024 Travel Social History Tobacco Use Types Packs/Day Years [...] Info) Description 01/21/2025 8:30 AM EDT Appointment [facility]ASC[facility] [place] [address] [facility] [address] [place] [address] 05/13/2025 10:45 AM EST Office Visit [facility] [address] [facility] [address] [place] [phone] Charli Samson MD [address] [facility] [address] [place] [address] documented as of this encounter Visit Diagnoses Not on filedocumented in this encounter Care Teams Deli/Bakery Associate Relationship Specialty Start Date End Date Rl Gallo MD [address] [place] [address] [facility] [address] [place] [id number] PCP - General Adolescent Medicine 05/01/23 documented as of this encounter
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
[2025-01-02] MEDS: TET/DIPHTH/PERT-ADULT 0.5ML SYRINGE 0.5 ML IM (14:40)
--- NOTE | 2025-01-02 15:00 | PC.NURSE ---
c collar removed by berkley crow
--- NOTE | 2025-01-02 15:00 | PC.NURSE ---
call made to rad for update on pts scan read. radiology physician states that the scan has been assigned but not being read.
[2025-01-02 15:10] VITALS: BP 138/97; PULSE 72; O2SAT 99
[2025-01-02 16:27] LABS: COC Drug Screen Collection Only
[2025-01-02 17:06] VITALS: BP 142/90; PULSE 63; O2SAT 100
[2025-01-02 17:12] VITALS: BP 134/93; PULSE 62; RESP 19; TEMP 36.7; O2SAT 99
== END 2025-01-02 17:14 | disposition home or self-care (01) ==
PROVIDERS: Emergency Provider Student in an Organized Health Care Education/Training Program; PCP Internal Medicine Adolescent Medicine
DX: M54.2 Cervicalgia (principal); S00.81XA Abrasion of other part of head, initial encounter; R29.898 Other symptoms and signs involving the musculoskeletal system; F17.200 Nicotine dependence, unspecified, uncomplicated; V43.52XA Car driver injured in collision with other type car in traffic accident, initial encounter
CPT/HCPCS: 72125; 90471; 90715; 99284; 99285